=== PATIENT | female | born 1930 | race Caucasian/White ===

== ENCOUNTER 2017-09-26 22:55 | Inpatient (IN) | payer MEDICARE ==
--- NOTE | 2017-09-26 23:30 | RAD ---
PORTABLE CHEST: 09/26/17 HISTORY: Dyspnea. COMPARISON: 09/16/12 study. The heart size is enlarged. A pacemaker is present. Pulmonary vessels are engorged. There is increase d perihilar lung markings most suggestive of pulmonary edema. IMPRESSION: Cardiomegaly with pulmonary edema changes. POS: [facility]
[2017-09-26 23:37] LABS: Base Excess-Venous 2.3 mmol/L (0 (+/- 2.5)); Bicarbonate (HCO3v) 28.3 mmol/L (1.0-85.0); CO2 Tension (PvCO2) 47.7 mmHg (41.0-51.0); Calcium, Ionized 1.09 mmol/L (1.12-1.32); Hemoglobin - Calc 15.3 g/dL (12.0-18.0); O2 Tension (PvO2) 48.9 mmHg (35.0-45.0); Potassium 4.3 mmol/L (3.4-4.7); T. Carbon Dioxide 29.7 mmol/L (1.0-85.0); vO2 Saturation-calc 82.9 % (94-98)
[2017-09-26 23:44] LABS: #Basophils 0.1 thou/uL (0.0-0.2); #Eosinphils 0.3 thou/uL (0.0-0.7); #Lymphocytes 2.3 thou/uL (1.20-3.40); #Monocytes 1.3 thou/uL (0.11-0.59); #Neutrophils 11.8 thou/uL (1.40-6.50); %Basophils 0.4 % (0.0-1.0); %Eosinophils 1.8 % (0.0-10.0); %Lymphocytes 14.8 % (21.0-51.0); %Monocytes 8.1 % (0.0-10.0); %Neutrophils 74.9 % (42.0-75.0); Hemoglobin 13.9 g/dL (12.0-16.0); Mean Corpuscular HGB CONC 32.9 g/dL (32.0-36.0); Mean Corpuscular Hemoglobin 29.9 pg (27.0-31.0); Mean Platelet Volume 7.6 fL (7.4-10.4); Platelet Count 231 thou/uL (130-400); RBC Distribution Width 14.3 % (11.5-14.5); Red Blood Cell (RBC) Count 4.64 mill/uL (4.20-5.40); White Blood Cell (WBC) Count 15.7 thou/uL (4.8-10.8)
[2017-09-26] MEDS ORDERED: Furosemide 100 MG/10 ML VIAL ONE (23:54)
[2017-09-26 23:56] LABS: Anion Gap 16 mmol/L (10-20); BUN (Urea Nitrogen) 42 mg/dL (9.8-20.1); CK (CPK) 46 U/L (29-168); Calc. Creatinine Clearance 0 mL/min (70-130); Calcium 9.7 mg/dL (7.8-10.44); Carbon Dioxide 27 mmol/L (23-31); Chloride 99 mmol/L (98-107); Estimated GFR-MDRD 40; Glucose 180 mg/dL (83-110); Potassium 4.5 mmol/L (3.5-5.1); Sodium 137 mmol/L (136-145)
[2017-09-27 00:01] LABS: CKMB 1.1 ng/mL (0-6.6); Troponin I 0.011 ng/mL (< 0.028)
[2017-09-27] MEDS ORDERED: Calcium Carbonate 500 MG ChewTAB PO PRN (03:42)
[2017-09-27] MEDS ORDERED: Senokot 8.6 MG TAB PO PRN (03:42)
[2017-09-27] MEDS ORDERED: Insulin Regular 300 UNITS/3 ML VIAL SC PRN ×2 (03:51)
[2017-09-27] MEDS ORDERED: Dextrose 50% Abboject 50 ML SYRINGE SLOW IVP PRN (03:51)
[2017-09-27] MEDS ORDERED: Dextrose 5% in Water 1,000 ML IV PRN (03:51)
--- NOTE | 2017-09-27 04:12 | HP ---
PRIMARY CARE PHYSICIAN: [facility]. PRIMARY FORECLOSURE PARALEGAL: [facility]. CHIEF COMPLAINT: Shortness of breath. HISTORY OF PRESENT ILLNESS: Patient is an 87-year-old female with chronic systolic heart failure, pa roxysmal atrial fibrillation, chronic respiratory failure on home oxygen, COPD, and disease stage 3 w as brought in from [facility] by EMS. Patient was placed on noninvasive positive pressure ventilati on at [facility]. She was tripoding and was only able to speak one word sentences at the scene. Valentin jack is currently on noninvasive positive pressure ventilation and not much information is available from the patient. Please note, the patient was discharged from [facility] yesterday. History obtained from the review of chart. The [facility] records were also ob tained. Echocardiogram at [facility] last week showed ejection fraction of 60% range. CT angio gram of the chest was negative for pulmonary embolism. It showed findings consistent with pulmonary edema with trace bilateral pleural effusions. PAST MEDICAL HISTORY: 1. Chronic systolic heart failure, ejection fraction has improved compared to previous. 2. Hypertension. 3. Hyperlipidemia. 4. Chronic respiratory failure, on home oxygen. 5. Chronic obstructive pulmonary disease. 6. Diabetes mellitus, type 2. 7. Chronic venous insufficiency. 8. Gastroesophageal reflux disease. 9. Former smoker. 10. Degenerative joint disease. 11. Non-small cell carcinoma. PAST SURGICAL HISTORY: 1. Appendectomy. 2. Adenoidectomy. 3. Cardiac catheterization. 4. Right femur surgery. 5. Left upper lobe resection for non-small cell carcinoma. ALLERGIES: Patient is allergic to KAIN INHIBITOR and CLONIDINE. CURRENT HOME MEDICATIONS: Patient is unable to recall all of her home medications. The following is a list from the discharge summary from [facility] from yesterday. Tylenol as needed, albuterol inhaler as needed, Pulmicort 0.5 mg twice a day, carvedilol 12.5 mg twice a day, Multaq 400 mg twice a day, Lasix 40 mg daily, hydralazine 25 mg 3 times a day as needed, DuoNebs 3 times a day, MiraLax daily. SOCIAL HISTORY: Patient currently lives at home with her family. She was brought in from [facility]. She is FULL CODE and makes her own decision with the help of her family. She is a former smoker. FAMILY HISTORY: Negative for premature coronary artery disease or sudden . REVIEW OF SYSTEMS: Cannot be reliably obtained from the patient since patient is currently on noninv asive positive pressure ventilation. PHYSICAL EXAMINATION: VITAL SIGNS: On ER arrival temperature 98.6, respirations 25-29, pulse rate of 95, O2 saturation 100 % on noninvasive positive pressure ventilation. Blood pressure was 220/110 by EMS. In the emergency room, blood pressure was 162/74. GENERAL: An 87-year-old female on noninvasive positive pressure ventilation. Shortness of breath is improving. HEENT: Head atraumatic, normocephalic. Sclerae anicteric. Moist mucous membranes. No oral lesion. NECK: Supple. Neck veins distended. No carotid bruit. LUNGS: Showed coarse breath sounds bilaterally with diminished air entry at bases. There were expir atory and inspiratory wheezes. There was accessory muscle use. HEART: S1, S2 present. Regular rate and rhythm, 2/6 systolic murmur over the mitral area. ABDOMEN: Soft, nontender, bowel sounds present. EXTREMITIES: 1+ pitting edema in bilateral lower extremities up to the leg. NEUROLOGIC: Grossly nonfocal, moves all four extremities. PSYCHIATRY: Alert, awake, oriented x3. SKIN: Warm and dry. LYMPH NODES: No palpable lymph nodes in the neck. PERIPHERAL VASCULAR: Radial pulses palpable bilaterally. MUSCULOSKELETAL: No joint swelling or tenderness. LABORATORY FINDINGS: 1. CBC showed WBC 15.7 with hemoglobin 13.9, hematocrit 42.2, platelet count 231. 2. VBG showed pH 7.38 with pCO2 of 47.7, bicarbonate 28.3 with pO2 of 48.9. 3. BNP was 173.6. 4. Creatinine was 1.26 with BUN 42, sodium 137, potassium 4.5. Her creatinine at [facility] s 1.05 with a BUN of 29. 5. Chest x-ray by my review showed pulmonary vascular congestion/pulmonary edema with cardiomegaly. 6. EKG by my review showed sinus rhythm with left ventricular hypertrophy, left axis deviation. IMPRESSION: 1. Acute on chronic hypoxic respiratory failure secondary to pulmonary edema/acute on chronic systol ic heart failure exacerbation. Please note that patient was discharged from [facility] a pproximately 12 hours ago to [facility]. Patient will be monitored in the IMCU. We will continue n oninvasive positive pressure ventilation. We will consult Critical Care. Echocardiogram was done at [facility], two days ago. We will continue noninvasive positive pressure ventilation for now. Continue diuretics. Patient is allergic to KAIN INHIBITOR. Home medications will be resumed. 2. Chronic respiratory failure on home oxygen. 3. Chronic kidney disease, stage 3 with some worsening of her creatinine. We will monitor labs on t he daily basis. 4. Leukocytosis, unlikely to be infectious. 5. Paroxysmal atrial fibrillation. We will continue Multaq. Chronic obstructive pulmonary disease with probable chronic obstructive pulmonary disease exacerbation. We will continue nebulizer treatme nt. We will hold steroids for now. 6. Hypertension with hypertensive emergency. Her blood pressure is improving. We will continue diu retics. Plan of care was discussed with the patient in detail, she stated understanding.
[2017-09-27] MEDS ORDERED: Nitroglycerin 2% Ointment 1 INCH/1 GM Packet ONE (04:31)
[2017-09-27] MEDS ORDERED: Furosemide 40 MG/4 ML VIAL ONE (05:59)
[2017-09-27] MEDS ORDERED: Budesonide 0.5 MG/2 ML NEB INH SCH (06:30)
[2017-09-27 08:13] LABS: Anion Gap 16 mmol/L (10-20); BUN (Urea Nitrogen) 37 mg/dL (9.8-20.1); Calc. Creatinine Clearance 0 mL/min (70-130); Calcium 10.3 mg/dL (7.8-10.44); Carbon Dioxide 25 mmol/L (23-31); Chloride 101 mmol/L (98-107); Estimated GFR-MDRD 45; Glucose 201 mg/dL (83-110); Magnesium 2.4 mg/dL (1.6-2.6); Potassium 3.9 mmol/L (3.5-5.1); Sodium 138 mmol/L (136-145)
[2017-09-27 08:20] LABS: Troponin I 0.106 ng/mL (< 0.028)
[2017-09-27] MEDS ORDERED: Heparin 5,000 UNITS/ML VIAL ONE (08:59)
[2017-09-27] MEDS ORDERED: Famotidine 20 MG TAB ONE (08:59)
[2017-09-27] MEDS ORDERED: Famotidine 20 MG TAB PO SCH (09:00)
--- NOTE | 2017-09-27 10:25 | PDOC.PN ---
- Subjective Encounter Start Date: 09/27/17 Encounter Start Time: 10:23 - Objective Resuscitation Status: Resuscitation Status FULL:Full Resuscitation MAR Reviewed: Yes I&O: 09/26/17 09/27/17 09/28/17 06:59 06:59 06:59 Output Total 300 Balance -300 Result Diagrams: 09/26/17 23:26 09/27/17 07:52 Phys Exam - Physical Examination Neck: no JVD rales, vesicular bs on left Cardiovascular: RRR, no significant murmur Gastrointestinal: soft, positive bowel sounds Musculoskeletal: edema present Dx/Plan (1) Acute and chronic respiratory failure with hypoxia Code(s): J96.21 - ACUTE AND CHRONIC RESPIRATORY FAILURE WITH HYPOXIA Status: Acute (2) Paroxysmal atrial fibrillation Code(s): I48.0 - PAROXYSMAL ATRIAL FIBRILLATION Status: Chronic (3) Acute on chronic systolic congestive heart failure Code(s): I50.23 - ACUTE ON CHRONIC SYSTOLIC (CONGESTIVE) HEART FAILURE Status : Acute (4) CKD (chronic kidney disease) stage 3, GFR 30-59 ml/min Code(s): N18.3 - CHRONIC KIDNEY DISEASE, STAGE 3 (MODERATE) Status: Chronic (5) Hemoptysis Code(s): R04.2 - HEMOPTYSIS Status: Acute - Plan off bipap , on O2 -: cont iv lasix, po coreg, dronedone -: cont nebs,etc -: < 24hr DC from [facility]- transfer? * .
[2017-09-27] MEDS: Nitroglycerin 2% Ointment 1 INCH/1 GM Packet TOP SCH ×3 (11:36→20:25)
[2017-09-27] MEDS: Furosemide 40 MG/4 ML VIAL SLOW IVP SCH ×2 (11:37→15:28)
[2017-09-27] MEDS: Dronedarone HCl 400 MG TAB PO SCH ×2 (11:37→17:36)
[2017-09-27] MEDS: Carvedilol 6.25 MG TAB PO SCH ×3 (11:37→20:22)
[2017-09-27] MEDS: hydrALAZINE 25 MG TAB PO SCH ×3 (11:38→20:25)
[2017-09-27 12:14] VITALS: BMI 29.2
[2017-09-27] MEDS: Docusate 100 MG CAP PO SCH ×2 (13:09→20:25)
[2017-09-27] MEDS: Aspirin 81 mg Enteric Coated Tablet PO SCH (13:09)
[2017-09-27] MEDS: Heparin 5,000 UNITS/ML VIAL SC SCH ×2 (13:13→20:24)
--- NOTE | 2017-09-27 15:15 | PDOC.EVN ---
Event Note - Event Note Event Note: [facility] declined perlita. have discussed with Dr Diego, will call Dr Mon
[2017-09-27] MEDS: Acetaminophen 325 MG TAB PO PRN (20:24)
--- NOTE | 2017-09-27 21:55 | CON ---
DATE OF CONSULTATION: 09/27/2017 SERVICE: Pulmonary Medicine. HISTORY OF PRESENT ILLNESS: Patient is an 87-year-old white female with past medical history significant for chronic diastolic heart failure and left upper lobectomy for a lung cancer. She was followed for a period of 5 years with serial imaging. At that point, she was cut loose from clinic because she did not have any recurrence of disease. She follows regularly with Pulmonary Medicine at [facility]. Her physician was Dr. Little. The patient now has an appointment next week with Dr. Ricardo Ordoñez because Dr. Little has left [facility]. She is planning on doing pulmonary function studies, and chest x-ray. The patient was in her usual state of health until 3 or 4 days prior to admission to [facility] last week. She started having increasing dyspnea on exertion, weight gain, abdominal swelling, and lower extremity swelling. She thought this was odd. That being said, she started having some dyspnea on exertion that was progressive. She woke up in the middle of the night acutely winded. She checked her oxygen level and it was in the 70s on oxygen. She called emergency services and was subsequently transferred to [facility]. She ended up getting diuresed over a period of 3 or 4 days and her breathing improved dramatically. On the day of discharge from the hospital, she had returned to her usual state of health and she was breathing comfortably. She was discharged to a swing bed facility so that she can pursue aggressive physical therapy in the inpatient setting. After being there for roughly 4 hours, her blood pressure was taken and it was elevated. She typically takes Coreg in the evening time. She also takes hydralazine on a p.r.n. basis. These medications were not going to be delivered to her specifications and at the time she requested them. For the high blood pressure, two doses of clonidine, and 1 dose of Coreg was ordered for the patient. The patient was concerned because she had never taken 2 doses of clonidine at the same time. Either way, she feels that she was forced to take those medications. She did and roughly 30 minutes later, she started having shaking chills, lightheadedness , and broke out in profuse sweats. She requested that her blood pressure be checked once again. She had never felt this way previously. Staff there refused to take her pressure again based on her recollection. She was terrified and requested that 911 be called. It was explained to her that she was in the hospital and 911 would not be called. Ultimately, she called her son. She does not remember the rest of the story. Apparently, when the son arrived; however, transportation was already being arranged for her to go back to the hospital and she was in and out of consciousness. When she arrived here, blood pressures were originally elevated. They then settled down fairly quickly. Overnight, the patient was admitted to the telemetry unit. She currently indicates being back to her usual state of health. She still feels weak, but says that she is gaining strength on a day by day basis and her breathing has improved dramatically. She denies any fevers or chills. She was coughing up some pink sputum. That being said, she did not have anything like yellow or green and did not particularly feel sick. PAST MEDICAL HISTORY: 1. Chronic systolic heart failure. 2. Hypertension. 3. Dyslipidemia. 4. Chronic hypoxic respiratory failure. 5. Chronic obstructive pulmonary disease. 6. Type 2 diabetes mellitus. 7. Chronic venous insufficiency. 8. Gastroesophageal reflux disease. 9. History of nonsmall cell lung cancer status post left upper lobectomy. PAST SURGICAL HISTORY: 1. Left upper lobectomy. 2. Right femur surgery. 3. Cardiac catheterization. 4. Adenoidectomy. 5. Appendectomy. ALLERGIES: 1. KAIN INHIBITOR. 2. CLONIDINE. SOCIAL HISTORY: Negative for alcohol, tobacco or illicit drug use. She was previously nearly independent in her ADLs. She required some assistance with mobility, however. At baseline, however, she was able to maintain her household with light assistance. Whenever she went longer distances, she opted to transport with her son, and use a wheelchair. She has no exposure to chemicals, dust, asbestos or tuberculosis, currently. She denies any alcohol, tobacco or illicit drug use. FAMILY HISTORY: Noncontributory. REVIEW OF SYSTEMS: General, head, ears, eyes, nose, throat, cardiovascular, respiratory, GI, , musculoskeletal, neurologic and skin is negative except as mentioned in the HPI. PHYSICAL EXAMINATION: VITAL SIGNS: Afebrile, pulse 84, blood pressure 134/63, respirations 18, saturation 134/65, respirations 18, saturation 92% on 3 liters nasal cannula. GENERAL: The patient is awake, alert, no apparent distress. LUNGS: Decreased air entry. There is a slightly prolonged expiratory phase. Polyphonic wheezing, but crackles predominate throughout the bibasilar region. HEART: Normal rate, regular. ABDOMEN: Soft, nontender, nondistended. Bowel sounds are positive. MUSCULOSKELETAL: No cyanosis or clubbing. No pitting in the bilateral lower extremities. NEUROLOGIC: Grossly nonfocal. LABORATORY DATA: WBC 15.7, hemoglobin 13.9, platelets 231,000. A pH 7.38, pCO2 of 47, pO2 of 59. Creatinine 1.14 and down trending. Basic metabolic profile is otherwise unremarkable. Ionized calcium 1.09, troponin 0.106. Magnesium 2.4. BNP 173. IMAGING: Chest x-ray demonstrates left-sided pleural parenchymal changes, possibly consistent with a layering effusion. There is also an effusion in the left apex area. Jocelyn B lines are present throughout the entirety of the right lung. There are also interstitial markings that are more prominent. There is a right-sided pleural effusion also present, but it is much smaller compared to the left. There is a dual chamber pacemaker in place. Pulmonary vascular congestion is evident. ASSESSMENT: 1. Acute on chronic hypoxic respiratory failure. 2. Chronic obstructive pulmonary disease with acute exacerbation. 3. Acute on chronic diastolic heart failure with likely flash pulmonary edema associated with hypertensive emergency. 4. Hypertensive emergency. 5. Debility. 6. History of lung cancer, status post left upper lobectomy. 7. Obstructive sleep apnea. DISCUSSION AND PLAN: We can gently diurese the patient through the weekend. In 24-48 hours, if she is stable for transition home, she would prefer to go there. She would like to regain her strength a little bit before making that transition, however, I will involve physical therapy and the walking program to see if we can improve her strength. She absolutely will refuse to go back to the previous [facility] facility. She already has a plan of care in place with Dr. Ricardo Ordoñez including imaging, and pulmonary function study scheduled for next week. As such, advanced diagnostic imaging studies are not going to be conducted here. Certainly, I am happy to see the patient in the outpatient setting if the patient is so inclined, but I will not set up any specific followup with myself. Differential for the chest x-ray remains wide. My suspicion is that we are dealing with a volume overload event associated with flash pulmonary edema from her elevated blood pressures. I would be interested in an echocardiogram to know whether or not she has significant mitral regurgitation, but once again, she has already returned to her usual state of health. Her home CPAP will be continued at night for her obstructive sleep apnea. Pulmonary will continue to follow intermittently during the hospital stay. 70 minutes have been devoted to this patient in various activities. I personally reviewed all imaging studies and laboratory data noted within this document. For fifty percent of this time, I was interacting with the patient at the bedside or coordinating care with the care team. For the remainder of the time I was immediately available to the patient in the hospital unit. MIGUELITO
--- NOTE | 2017-09-27 23:22 | CON ---
DATE OF CONSULTATION: 09/27/2017 INDICATION FOR CONSULTATION: An 87-year-old female with chronic obstructive pulmonary disease exacer lindsey and history of intermittent atrial fibrillation. HISTORY OF PRESENT ILLNESS: This very pleasant and very alert 87-year-old female, was just discharge d yesterday from [facility] after having a COPD exacerbation. She was seen and had an evaluatio n. Her echocardiogram was unremarkable. She had a normal ejection fraction. She has had a history in the past of having some diastolic dysfunction; in 2012, the ejection fraction was 60-65% by echoca rdiogram with a diastolic dysfunction and mild tricuspid valve regurgitation. She also had a cardiac catheterization in 2003 which showed normal coronary arteries. She has had a lung cancer this was o perated on by Dr. Da Silva and 2/3 I believe of her left upper lobe was removed. Since that time, she h as had shortness of breath and has been on oxygen. She is on 3 liters at home / unless she uses h er concentrator and then she is on 4 liters. She has had a long history of tobacco abuse in the past , but stopped many, many years ago prior to even having her lung cancer. She had had an episode of s yncope in the past and intermittent atrial fibrillation. She has been treated with amiodarone. She has had a pacemaker insertion and has been followed since that time by Dr. Vaughn at [facility] and she was taken off the amiodarone and was placed on Multaq, which she remains and has remained rel atively stable. She has noticed recently some palpitations, but otherwise appears to be stable. She denied any chest pain. Yesterday, she went to [facility] after leaving [facility] and she to ld the staff apparently at [facility], she did not receive her daily medications and she was concer michelet about this as she has had some spikes in the blood pressure associated with fatigue and shortness of breath. She then had apparently some misunderstanding of the staff and misunderstanding of her m edications and she then had a spike in the blood pressure after not being given medications apparentl y as quickly she wanted and it was decided that she could have some clonidine for the blood pressure; however, she says that she is allergic to CLONIDINE and does not take that then she was given 2 hydr alazine tablets and she has some disagreement saying that she had not taken that much before and ther e was some disagreement with the staff and the patient and I believe she became more anxious. The bl ood pressure became higher then she became more short of breath and dyspneic and then called the nurs ing staff then called 911 as the patient became short of breath. She was unable to breathe. She the n was brought to the emergency room and has been treated since that time. She is feeling much better now. She is comfortable. She does have oxygen on, but denies any significant shortness of breath o r chest pain or any other symptoms at this time. PAST MEDICAL HISTORY: Significant for peripheral vascular disease. She has type 2 diabetes, hyperte nsion, and dyslipidemia. She has a history of pacemaker insertion as well as lung cancer. ALLERGIES: She is allergic to CLONIDINE and RAMIPRIL. FAMILY HISTORY: Unremarkable at this point. REVIEW OF SYSTEMS: A 12-point review of systems is relatively unremarkable except for shortness of b reath and the episode which occurred yesterday. She denied any chest pain. She does have fatigue. She did mention to me in the last couple days she has noticed some mild hemoptysis. MEDICATIONS: At this time include, aspirin, Pulmicort, Coreg, Colace, Multaq. She is on Pepcid, Las ix, hydralazine, albuterol, p.r.n. insulin. PHYSICAL EXAMINATION: GENERAL: Reveals an elderly, very pleasant, alert female who is in no acute distress at this time. She is sitting at the side of the bed. She was getting ready to call in her menu for the evening. VITAL SIGNS: Stable. Her blood pressure was 143/68; however, this afternoon it did increase up to 1 65/77, heart rates in the 80s and shows a sinus rhythm, respiratory rate is 20. She is afebrile. O2 saturation 96% on 3 liters. HEENT: Shows head to be normocephalic and atraumatic. Carotid pulses are present. I did not hear a ny bruits. CHEST: Shows decreased breath sounds in the left side, appears to be decreased breath sounds at the base. CARDIOVASCULAR: Exam reveals a regular rate and rhythm. She has a very soft systolic murmur at the apex. There were no significant murmurs, heaves, thrills, bruits or rubs otherwise. ABDOMEN: Soft and nontender. Positive bowel sounds are present. EXTREMITIES: Showed no clubbing or cyanosis. She does have discoloration of the bilateral lower ext remities from just about 2[address] the calf area just above the ankle area, some discolora tion. Pedal pulses not palpable, nor can I palpate popliteal pulses. (She does have a history of pe ripheral vascular disease.) NEUROLOGIC: She appears to be fully intact. SKIN: Warm and dry. LABORATORY DATA: Sodium is 138, potassium 3.9, BUN 37, creatinine is 1.14. Troponin I was 0.011 inc reased up to 0.106. BNP was 173. IMPRESSION AND PLAN: 1. Congestive heart failure exacerbation, most likely brought on by anxiety due to not being able to get her medications in a timely fashion. 2. History of congestive heart failure which is diastolic in nature in the past. She has a normal e jection fraction by recent echocardiogram. She has mild tricuspid valve regurgitation. 3. Past history of lung cancer. 4. Mild hemoptysis over the last 2 days. This may need to be evaluated further, hopefully she has n ot had any recurrence of her lung cancer. 5. Dyslipidemia. She will be able to continue her present medications. 6. Peripheral vascular disease. She has significant decrease in the pulses, so I cannot palpate pop liteal or pedal pulses. She may need to undergo further evaluation as an outpatient with Doppler esthela luation and possible angioplasty or stents if necessary. 7. Hypertension. This is being controlled and monitored by Dr. Vaughn, her track repairer helper at [facility]. At this time, she appears to be more stable and will continue her present medications. Jami uld the blood pressure continue to increase, we can always increase the Coreg since she has a pacemak er and will not be bradycardic. We will be more than happy to continue to follow the patient with yo u, but it overall appears that she had an anxiety attack which exacerbated her hypertension and then COPD exacerbation or CHF exacerbation due to the elevated blood pressure from the anxiety.
[2017-09-28 05:07] LABS: #Eosinphils 0.1 thou/uL (0.0-0.7); #Lymphocytes 1.8 thou/uL (1.20-3.40); #Monocytes 0.9 thou/uL (0.11-0.59); #Neutrophils 5.7 thou/uL (1.40-6.50); %Basophils 0.3 % (0.0-1.0); %Eosinophils 1.1 % (0.0-10.0); %Lymphocytes 21.7 % (21.0-51.0); %Monocytes 10.2 % (0.0-10.0); %Neutrophils 66.8 % (42.0-75.0); Hemoglobin 11.6 g/dL (12.0-16.0); Mean Corpuscular HGB CONC 33.1 g/dL (32.0-36.0); Mean Corpuscular Volume 90.6 fl (81.0-99.0); Mean Platelet Volume 7.6 fL (7.4-10.4); Platelet Count 182 thou/uL (130-400); RBC Distribution Width 14.2 % (11.5-14.5); Red Blood Cell (RBC) Count 3.86 mill/uL (4.20-5.40); White Blood Cell (WBC) Count 8.5 thou/uL (4.8-10.8)
[2017-09-28 05:24] LABS: Anion Gap 12 mmol/L (10-20); BUN (Urea Nitrogen) 44 mg/dL (9.8-20.1); Calc. Creatinine Clearance 33 mL/min (70-130); Calcium 9.4 mg/dL (7.8-10.44); Carbon Dioxide 31 mmol/L (23-31); Chloride 98 mmol/L (98-107); Estimated GFR-MDRD 35; Glucose 119 mg/dL (83-110); Magnesium 2.6 mg/dL (1.6-2.6); Potassium 3.6 mmol/L (3.5-5.1); Sodium 137 mmol/L (136-145)
[2017-09-28] MEDS ORDERED: Furosemide 40 MG/4 ML VIAL SLOW IVP SCH (06:00)
[2017-09-28] MEDS: Acetaminophen 325 MG TAB PO PRN ×2 (06:34→13:35)
[2017-09-28] MEDS: Nitroglycerin 2% Ointment 1 INCH/1 GM Packet TOP SCH ×3 (06:35→21:31)
[2017-09-28] MEDS ORDERED: predniSONE 20 MG TAB PO SCH (08:00)
[2017-09-28] MEDS: Docusate 100 MG CAP PO SCH ×2 (08:52→21:31)
[2017-09-28] MEDS: Aspirin 81 mg Enteric Coated Tablet PO SCH ×2 (08:53→17:34)
[2017-09-28] MEDS: Dronedarone HCl 400 MG TAB PO SCH ×2 (08:53→17:34)
[2017-09-28] MEDS: Carvedilol 6.25 MG TAB PO SCH ×3 (08:53→21:31)
[2017-09-28] MEDS: hydrALAZINE 25 MG TAB PO SCH (08:56)
[2017-09-28] MEDS: Heparin 5,000 UNITS/ML VIAL SC SCH (08:56)
--- NOTE | 2017-09-28 11:04 | RAD ---
CHEST 2 VIEWS: Date: 09/28/17 HISTORY: Dyspnea. CHF. Pleural fluid. COMPARISON: 09/26/17. FINDINGS: Cardiac silhouette is magnified and partially obscured by bibasilar infiltrates that are less pronoun basil than on the previous study. Pulmonary vasculature is less engorged. Mediastinum midline with aort ic calcification and a dual lead left subclavian cardiac electronic device. Old rib fractures. No laura dence of pneumothorax. Osseous structures demineralized. IMPRESSION: 1. Pulmonary edema and pleural fluid have improved since the prior exam. 2. Atherosclerosis. 3. Osteoporosis. POS: [facility]
--- NOTE | 2017-09-28 12:21 | PDOC.CTH ---
Cardiology Progress Note - Subjective The pt seen and examined. No overnight events. No cardiac complaints. - Objective Vital Signs Temp Pulse Pulse Pulse Resp BP BP 09/28/17 11:58 92 18 09/28/17 11:29 97.7 F 76 16 09/28/17 11:13 76 73 147/72 H 09/28/17 08:56 72 09/28/17 08:53 128/62 09/28/17 08:08 98.1 F 72 16 09/28/17 07:20 85 18 09/28/17 03:19 97.5 F L 74 16 BP BP Pulse Ox Pulse Ox Pulse Ox 09/28/17 11:58 96 09/28/17 11:29 122/65 93 L 09/28/17 11:13 144/61 H 90 L 93 L 09/28/17 08:56 09/28/17 08:53 09/28/17 08:08 144/90 H 92 L 09/28/17 07:20 95 09/28/17 03:19 125/51 L 96 Weight 167 lb 09/27/17 09/28/17 09/29/17 06:59 06:59 06:59 Output Total 750 Balance -750 - Physical Examination General/Neuro: alert & oriented x3 Neck: no JVD present Lungs: other: (diminished at bases) Heart: RRR Abdomen: soft Extremities: other: (1+ pitting edema to LLE) - Telemetry Telemetry Rhythm: SR w/ Apaced - Labs Result Diagrams: 09/28/17 04:46 09/28/17 04:46 Troponin/CKMB CK-MB (CK-2) 1.1 ng/mL (0-6.6) 09/26/17 23:26 Troponin I 0.106 ng/mL (< 0.028) H 09/27/17 07:52 - Assessment/Plan 1. COPD exacerbation - She is on 3LNC, which she is on at home; managed by securities attorney 2. Acute on chronic diastolic HF - stable; Lasix 40mg IV was changed from BID to daily; not on KAIN/ARE due to Hx of CKD. 3. Paroxysmal Afib - SR with A paced 4. CKD stage 3 - Cr worsen today (1.40 from 1.14); Lasix 40mg IV was changed from BID to daily; cont. to monitor 5. HTN - stable 6. PM placement - Tele shows SR with intermittent A paced MAR reviewed Review of Systems - Review of Systems Constitutional: reports: no symptoms reported EENTM: reports: no symptoms reported Respiratory: reports: no symptoms reported Cardiac (ROS): reports: no symptoms reported ABD/GI: reports: no symptoms reported : reports: no symptoms reported
[2017-09-28] MEDS ORDERED: Non-Formulary Item 1 EACH (Budesonide-Formoterol [Symbicort 160-4.5] 2 PUFF) INH PRN (12:55)
[2017-09-28] MEDS ORDERED: Spiriva 18 MCG CAP (Box of 5 Caps) INH PRN (12:55)
--- NOTE | 2017-09-28 13:00 | PDOC.PN ---
- Subjective Encounter Start Date: 09/28/17 Encounter Start Time: 12:58 Subjective: no sob, eyc - Objective Resuscitation Status: Resuscitation Status FULL:Full Resuscitation MAR Reviewed: Yes Vital Signs & Weight: Vital Signs (12 hours) Temp Pulse Pulse Pulse Resp BP BP 09/28/17 11:58 92 18 09/28/17 11:29 97.7 F 76 16 09/28/17 11:13 76 73 147/72 H 09/28/17 08:56 72 09/28/17 08:53 128/62 09/28/17 08:08 98.1 F 72 16 09/28/17 07:20 85 18 09/28/17 03:19 97.5 F L 74 16 BP BP Pulse Ox Pulse Ox Pulse Ox 09/28/17 11:58 96 09/28/17 11:29 122/65 93 L 09/28/17 11:13 144/61 H 90 L 93 L 09/28/17 08:56 09/28/17 08:53 09/28/17 08:08 144/90 H 92 L 09/28/17 07:20 95 09/28/17 03:19 125/51 L 96 Weight Weight 167 lb I&O: 09/27/17 09/28/17 09/29/17 06:59 06:59 06:59 Output Total 750 Balance -750 Result Diagrams: 09/28/17 04:46 09/28/17 04:46 Additional Labs: Accuchecks 09/28/17 09/27/17 10:49 15:53 POC Glucose 116 H 137 H Radiology Reviewed by me: Yes (cxr- marked improvement in pulmoary edema) Phys Exam - Physical Examination Constitutional: NAD Neck: no JVD bilat lower lung rales pot Cardiovascular: RRR 2/6 sys mumur Gastrointestinal: soft, non-tender, positive bowel sounds Musculoskeletal: edema present diminished left pedal pulse Dx/Plan (1) Acute and chronic respiratory failure with hypoxia Code(s): J96.21 - ACUTE AND CHRONIC RESPIRATORY FAILURE WITH HYPOXIA Status: Acute (2) Paroxysmal atrial fibrillation Code(s): I48.0 - PAROXYSMAL ATRIAL FIBRILLATION Status: Chronic (3) Acute on chronic systolic congestive heart failure Code(s): I50.23 - ACUTE ON CHRONIC SYSTOLIC (CONGESTIVE) HEART FAILURE Status : Acute (4) CKD (chronic kidney disease) stage 3, GFR 30-59 ml/min Code(s): N18.3 - CHRONIC KIDNEY DISEASE, STAGE 3 (MODERATE) Status: Chronic (5) Hemoptysis Code(s): R04.2 - HEMOPTYSIS Status: Acute - Plan cont lasix po , corg -: cont nebs , steroids, symbicort, O2 -: anticipate DC in 48 hrs home( her Choice) * .
[2017-09-28] MEDS ORDERED: Mometasone/Formoterol 120 PUFF INHALER INH PRN (13:06)
--- NOTE | 2017-09-28 16:03 | PRG ---
DATE OF SERVICE: 09/28/2017 SERVICE: Pulmonary Medicine. INTERVAL HISTORY: The patient is doing fine from a respiratory standpoint. She is breathing comfortably. She has no complaints of chest discomfort, nausea or vomiting. She is refusing her prednisone. She had several panic attacks last night. Over the way, we are managing some of her medications. That being said, today has been a better day. She denies any current fevers, chills, nausea, vomiting or chest discomfort. Lower extremity swelling seems to be improving a little bit. PHYSICAL EXAMINATION: VITAL SIGNS: Afebrile, pulse 75, blood pressure 114/66, respirations 16, saturation 99% on 3 liters nasal cannula. GENERAL: The patient is awake and alert, in no apparent distress. LUNGS: Reduced air entry on the left. There is excellent air entry on the right. There is slightly prolonged expiratory phase and bibasilar extensive crackling present. HEART: Normal rate, regular. ABDOMEN: Soft, nontender, nondistended. Bowel sounds are positive. MUSCULOSKELETAL: No cyanosis or clubbing. No pitting in the bilateral lower extremities. NEUROLOGIC: Grossly nonfocal. LABORATORY DATA: WBC 8.5, hemoglobin 11.6, platelets 182,000. Creatinine 1.40 and up trending gently. BUN 44. Basic metabolic profile is otherwise unremarkable. Troponin 0.1. IMAGING: Chest x-ray demonstrates interval improvement in pulmonary edema, and pleural effusion since yesterday. There still remains some fluid and what may be a fissure in the left upper lobe. ASSESSMENT: 1. Acute on chronic hypoxic respiratory failure. 2. Chronic obstructive pulmonary disease with acute exacerbation, volume mediated. 3. Acute on chronic diastolic heart failure, would likely flash pulmonary edema associated with hypertensive emergency. 4. Debility. 5. History of lung cancer, status post left upper lobectomy 6. Obstructive sleep apnea. DISCUSSION AND PLAN: The patient will be best served by getting her out of the hospital just as soon as possible. She had a dramatic improvement on the CXR overnight, consistent with a volume mediated presentation. The odd appearance is from scar tissue from her previous surgery preventing a layering effusion. She has a routine follow up with her atlassian administrator at [facility] scheduled for next week. Pulmonary/Critical Care will continue to follow along while she remains in this location, but I do believe that most of her presentation was volume mediated, possibly associated with a hypertensive event. FLORIAND
[2017-09-29] MEDS: Nitroglycerin 2% Ointment 1 INCH/1 GM Packet TOP SCH ×2 (05:18→13:25)
[2017-09-29 06:06] LABS: Anion Gap 11 mmol/L (10-20); BUN (Urea Nitrogen) 41 mg/dL (9.8-20.1); Calc. Creatinine Clearance 37 mL/min (70-130); Calcium 8.8 mg/dL (7.8-10.44); Carbon Dioxide 30 mmol/L (23-31); Chloride 101 mmol/L (98-107); Estimated GFR-MDRD 42; Glucose 101 mg/dL (83-110); Potassium 3.5 mmol/L (3.5-5.1)
[2017-09-29 06:21] LABS: Sodium 138 mmol/L (136-145)
[2017-09-29] MEDS: Acetaminophen 325 MG TAB PO PRN (08:40)
[2017-09-29] MEDS: Carvedilol 6.25 MG TAB PO SCH (08:40)
[2017-09-29] MEDS: Furosemide 40 MG TAB PO SCH (08:40)
[2017-09-29] MEDS: Dronedarone HCl 400 MG TAB PO SCH ×2 (08:40→17:56)
[2017-09-29] MEDS: Docusate 100 MG CAP PO SCH ×2 (08:40→21:56)
[2017-09-29] MEDS: Enoxaparin Sodium 30 MG/0.3 ML SYRINGE SC SCH (08:41)
--- NOTE | 2017-09-29 12:22 | PDOC.PN ---
- Subjective Encounter Start Date: 09/29/17 Encounter Start Time: 12:20 Subjective: fatigued post walk - Objective Resuscitation Status: Resuscitation Status FULL:Full Resuscitation Vital Signs & Weight: Vital Signs (12 hours) Temp Pulse Resp BP BP BP Pulse Ox 09/29/17 11:55 97.9 F 75 18 133/56 L 96 09/29/17 08:40 140/66 09/29/17 08:00 98.6 F 80 16 98 09/29/17 07:46 98.6 F 80 16 140/66 98 09/29/17 06:43 70 16 100 09/29/17 04:00 98.0 F 71 16 126/51 L 97 09/29/17 00:42 73 20 Weight Weight 164 lb 1.6 oz I&O: 09/28/17 09/29/17 09/30/17 06:59 06:59 06:59 Intake Total 1800 Output Total 750 575 Balance -750 1225 Result Diagrams: 09/28/17 04:46 09/29/17 05:41 Additional Labs: Accuchecks 09/29/17 09/29/17 09/28/17 10:50 05:39 16:52 POC Glucose 128 H 106 100 Phys Exam - Physical Examination Neck: no JVD Respiratory: clear to auscultation bilateral Cardiovascular: RRR, no significant murmur Gastrointestinal: soft, non-tender, positive bowel sounds Musculoskeletal: no edema Dx/Plan (1) Acute and chronic respiratory failure with hypoxia Code(s): J96.21 - ACUTE AND CHRONIC RESPIRATORY FAILURE WITH HYPOXIA Status: Acute (2) Paroxysmal atrial fibrillation Code(s): I48.0 - PAROXYSMAL ATRIAL FIBRILLATION Status: Chronic (3) Acute on chronic systolic congestive heart failure Code(s): I50.23 - ACUTE ON CHRONIC SYSTOLIC (CONGESTIVE) HEART FAILURE Status : Acute (4) CKD (chronic kidney disease) stage 3, GFR 30-59 ml/min Code(s): N18.3 - CHRONIC KIDNEY DISEASE, STAGE 3 (MODERATE) Status: Chronic (5) Hemoptysis Code(s): R04.2 - HEMOPTYSIS Status: Resolved - Plan in RSR, cont multaq,coeg, no KAIN _ARB - CKD 3 -: stable chronic resp failure on uusual O2 -: home tomorrow * .
--- NOTE | 2017-09-29 14:45 | PDOC.CTH ---
Cardiology Progress Note - Subjective Patient awake, visiting with family member at bedside. Denies any chest pain, shortness of breath. Has COPD, chronic oxygen usage. Ready to go home. Lots of questions regarding medications. No overnight events, no cardiac events. - ROS shortness of breath - Objective Vital Signs Temp Pulse Pulse Pulse Resp BP BP 09/29/17 13:02 83 18 09/29/17 12:53 71 73 133/56 L 09/29/17 11:55 97.9 F 75 18 09/29/17 08:40 140/66 09/29/17 08:00 98.6 F 80 16 09/29/17 07:46 98.6 F 80 16 09/29/17 06:43 70 16 09/29/17 04:00 98.0 F 71 16 BP BP BP Pulse Ox Pulse Ox 09/29/17 13:02 98 09/29/17 12:53 140/69 92 L 09/29/17 11:55 133/56 L 96 09/29/17 08:40 09/29/17 08:00 98 09/29/17 07:46 140/66 98 09/29/17 06:43 100 09/29/17 04:00 126/51 L 97 Weight 164 lb 1.6 oz 09/28/17 09/29/17 09/30/17 06:59 06:59 06:59 Intake Total 1800 Output Total 750 575 Balance -750 1225 - Physical Examination General/Neuro: alert & oriented x3, NAD Neck: no JVD present Lungs: CTA, unlabored respirations Heart: RRR Abdomen: NT/ND - Telemetry Telemetry Rhythm: A sensed V paced 70s - Labs Result Diagrams: 09/28/17 04:46 09/29/17 05:41 Troponin/CKMB CK-MB (CK-2) 1.1 ng/mL (0-6.6) 09/26/17 23:26 Troponin I 0.106 ng/mL (< 0.028) H 09/27/17 07:52 - Assessment/Plan 1. COPD exacerbation-oxygen dependent, stable. Cont pulm toilet, followed by pulmonology 2. Acute on chronic diastolic HF -volum status improved, continue same. No ACEi /ARB 2/2 CKD 3. Paroxysmal Afib-maintaining SR, intermittent A Paced-V sensed, 70s. Continue Multaq, carvedilol 4. CKD stage 3 - Cr 1.22 this am, improved. 5. HTN - stable 6. PPM placement Okay to discharge home in am.
[2017-09-29] MEDS ORDERED: Aspirin 81 mg Enteric Coated Tablet PO SCH (18:00)
--- NOTE | 2017-09-29 20:58 | PRG ---
DATE OF SERVICE: 09/29/2017 SUBJECTIVE: Ivet Cedeno is in no distress. Heart rate 72. She is afebrile, respiratory rate 18 , oximetry is 98 on 3 liters. Blood pressure 133/56. Her room air sat reportedly is 95 this afterno on. She has oxygen at home. OBJECTIVE: LUNGS: Clear. HEART: Regular rhythm. ABDOMEN: Soft. She tells me an FEV1 down at [facility] was 53% seen in the past when she had her surgical resec tion of lung cancer. She continues to be paced. IMPRESSION: 1. Chronic obstructive pulmonary disease exacerbation, moderate, but what she tells me about her PFT s. 2. Acute on chronic diastolic heart failure. 3. Atrial fibrillation, intermittently paced V sounds on Multaq and Coreg. 4. Chronic kidney disease with creatinine of 1.2, essentially normal for age. 5. Hypertension. PLAN: Continue current care. She anticipated she will go home tomorrow. She probably would do well with Brovana and budesonide twice a day since she remains quite active. Write a prescription for Br ovana at discharge. We will be happy to see her in follow up in the office. She wants to continue t o follow up with her numerical control drill press operator at [facility].
[2017-09-29] MEDS ORDERED: Carvedilol 6.25 MG TAB PO SCH (21:00)
[2017-09-30] MEDS: Dronedarone HCl 400 MG TAB PO SCH (08:17)
[2017-09-30] MEDS: Docusate 100 MG CAP PO SCH (08:17)
[2017-09-30] MEDS: Enoxaparin Sodium 30 MG/0.3 ML SYRINGE SC SCH (08:17)
[2017-09-30] MEDS: Furosemide 40 MG TAB PO SCH (08:17)
[2017-09-30] MEDS ORDERED: Carvedilol 6.25 MG TAB PO SCH (09:00)
--- NOTE | 2017-09-30 12:55 | PRG ---
DATE OF SERVICE: 09/30/2017 SUBJECTIVE: Ms. Ivet Cedeno has no new complaints. OBJECTIVE: VITAL SIGNS: Stable overnight. She is afebrile, heart rate is in the 70s, respiratory rates in the teens, oximetry is 92 on 2 liter cannula, blood pressure 115/53. LUNGS: Clear today. HEART: Regular rhythm. ABDOMEN: Soft. LABORATORY DATA: Her hemoglobin has not been repeated since , because she was mildly anemic. He r creatinine was 1.22 yesterday. IMPRESSION AND PLAN: Chronic obstructive pulmonary disease exacerbation. She is a candidate for discharge. I would place her on budesonide and Brovana twice a day. Other issues include diastolic heart failure, atrial fibrillation, chronic kidney disease and hyperte nsion. I will be happy to see her in 3-4 weeks after discharge if she wishes to follow up with me or Dr. Ronald dennison.
--- NOTE | 2017-09-30 14:06 | PDOC.CTH ---
Cardiology Progress Note - Objective Vital Signs Temp Pulse Pulse Pulse Resp BP BP 09/30/17 12:45 77 70 115/53 L 09/30/17 11:37 98.1 F 78 20 09/30/17 08:17 137/63 09/30/17 08:00 98 F 76 18 09/30/17 07:53 76 18 09/30/17 07:42 98.0 F 81 18 09/30/17 05:38 98.4 F 73 16 BP BP BP Pulse Ox 09/30/17 12:45 126/66 09/30/17 11:37 115/53 L 92 L 09/30/17 08:17 09/30/17 08:00 09/30/17 07:53 97 09/30/17 07:42 178/74 H 92 L 09/30/17 05:38 138/66 99 Weight 165 lb 6.4 oz 09/29/17 09/30/17 10/01/17 06:59 06:59 06:59 Intake Total 1800 1490 Output Total 575 1102 Balance 1225 388 - Labs Result Diagrams: 09/28/17 04:46 09/29/17 05:41 Troponin/CKMB CK-MB (CK-2) 1.1 ng/mL (0-6.6) 09/26/17 23:26 Troponin I 0.106 ng/mL (< 0.028) H 09/27/17 07:52 - Assessment/Plan 1. COPD exacerbation-oxygen dependent, stable. Cont pulm toilet, followed by pulmonology 2. Acute on chronic diastolic HF -volum status improved, continue same. No ACEi /ARB 2/2 CKD 3. Paroxysmal Afib-maintaining SR, intermittent A Paced-V sensed, 70s. Continue Multaq, carvedilol 4. CKD stage 3 - Cr 1.22 this am, improved. 5. HTN - stable 6. PPM placement
--- NOTE | 2017-09-30 14:17 | PRG ---
DATE OF SERVICE: 09/30/2017 SUBJECTIVE: Ms. Cedeno is doing well. She is planning on going home today. PHYSICAL EXAMINATION: VITAL SIGNS: Her blood pressure 115/53, pulse 78 and regular. LUNGS: Clear. CARDIAC: Normal S1, normal S2. ABDOMEN: Soft, nontender. EXTREMITIES: Mild edema. ASSESSMENT: 1. Recurrent diastolic congestive heart failure, now stabilized. 2. Previous pacemaker with appropriate atrial pacing. PLAN: The patient is to be released home on furosemide and follow up with Dr. Diego as an outpatient.
[2017-09-30 15:57] VITALS: BP 124/61; TEMP 97.4
--- NOTE | 2017-09-30 16:05 | PDOC.EVN ---
Event Note - Event Note Event Note: DC SUMMARY #[id number]
--- NOTE | 2017-10-01 00:14 | DIS ---
DATE OF ADMISSION: 09/27/2017 DATE OF DISCHARGE: 09/30/2017 ADMITTING DIAGNOSES: Acute on chronic respiratory failure, hypoxia, paroxysmal atrial fibrillation, acute chronic systolic heart failure, chronic kidney disease stage 3, hemoptysis. DISCHARGE DIAGNOSES: Acute on chronic obstructive pulmonary disease exacerbation, resolved; heart fa ilure, stable; hemoptysis, resolved; hypertension, stable as well as chronic kidney disease stage 3, stable. HOSPITAL COURSE: This is an 87-year-old female who was admitted to the hospital with shortness of br eath, COPD, who was admitted to Internal Medicine Team was also seen closely by Pulmonary Team. The patient was started on antibiotics and follow up with Cardiology during her hospital stay as well and medical management for shortness of breath. A chest x-ray revealed some pulmonary edema as well as pleural fluid. The patient had a diuretic medication regimen adjusted. At the point in time of disc harge, the patient was stable. Denied any nausea, vomiting, diarrhea, constipation, chest pain, feve r, chills, or shortness of breath. The patient was found to have need of home O2 and states that she does take home O2 at home and was also stating that she takes BiPAP at home. Patient was given a pr escription for Medrol Dosepak as well as Z-FELIPE. The patient was given a medication for Brovana by [facility] Pulmonary team. At the point in time of discharge, the patient was stable. DISPOSITION: Home. FOLLOWUP: Follow up with PCP and Pulmonary within 1-2 weeks. MEDICATIONS: See MAR. Scripts given by Z-FEILPE and prednisone by primary team and Brovana by Pulmonar y team. ACTIVITY: As tolerated with assistance as appropriate. DIET: Low fat, low calorie, high fiber, low salt diet, restrict fluid intake to about 1.5 liters a d ay. PROGNOSIS: Guarded. CONDITION: Stable. Case and plan discussed with the patient at length. She understands and agrees with this plan.
== END 2017-09-30 16:19 | disposition home or self-care (01) | DRG 291 ==
LOC: ERS 22:55 → ERHOLD 09-27 00:40 → 2SE 09-27 09:02
PROVIDERS: ADMIT Internal Medicine; ATTEND Internal Medicine
DX: I13.0 Hypertensive heart and chronic kidney disease with heart failure and stage 1 through stage 4 chronic kidney disease, or unspecified chronic kidney disease (principal); J96.21 Acute and chronic respiratory failure with hypoxia; I50.23 Acute on chronic systolic (congestive) heart failure; I16.1 Hypertensive emergency; J44.1 Chronic obstructive pulmonary disease with (acute) exacerbation; I48.0 Paroxysmal atrial fibrillation; Z99.81 Dependence on supplemental oxygen; K21.9 Gastro-esophageal reflux disease without esophagitis; N18.3 Chronic kidney disease, stage 3 (moderate); E11.22 Type 2 diabetes mellitus with diabetic chronic kidney disease; R53.81 Other malaise; G47.33 Obstructive sleep apnea (adult) (pediatric); Z87.891 Personal history of nicotine dependence; Z88.8 Allergy status to other drugs, medicaments and biological substances; Z95.0 Presence of cardiac pacemaker
CPT/HCPCS: 36415; 36416; 71045; 71046; 80048; 82330; 82550; 82553; 82803; 83735; 83880; 84484; 85025; 93005; 93798; 94640; 94660; 96372; 96374; 96376; J1644; J1650; J1940; J7506; J7620; J7626